=== PATIENT | female | born 1985 | race Hispanic/Latino ===

== ENCOUNTER 2017-07-01 01:35 | Emergency (ER) | payer SELFPAY ==
[2017-07-01 03:29] LABS: BASOPHILS % (AUTO) 0.4 % (0.0-5.0); EOSINOPHILS % (AUTO) 1.1 % (0.0-8.0); HEMATOCRIT 39.9 % (36-48); LYMPHOCYTES % (AUTO) 17.6 % (21.0-51.0); MEAN CORPUSCULAR HEMOGLOBIN 29.2 pg (27.0-33.0); MEAN CORPUSCULAR HGB CONC 33.5 g/dL (32.0-36.0); MEAN CORPUSCULAR VOLUME 87.1 fL (79-99); MONOCYTES % (AUTO) 4.8 % (3.0-13.0); NEUTROPHILS % (AUTO) 76.1 % (40.0-77.0); PLATELET COUNT (AUTO) 397 K/uL (130-400); RED BLOOD CELL COUNT(AUTO) 4.58 MIL/uL (4.00-5.50); WHITE BLOOD COUNT (AUTO) 14.4 K/uL (4.8-10.8)
[2017-07-01 03:34] LABS: APPEARANCE,URINE Turbid (CLEAR); BILIRUBIN,URINE Small (NEGATIVE); COLOR,URINE Dark Yellow (YELLOW); GLUCOSE, URINE (UA) Negative (NEGATIVE); KETONES,URINE Negative (NEGATIVE); LEUKOCYTE ESTERASE ,URINE Moderate (NEGATIVE); NITRATE,URINE Positive (NEGATIVE); OCCULT BLOOD,URINE Large (NEGATIVE); PROTEIN,URINE >=1000 (NEGATIVE)
[2017-07-01 03:38] LABS: CREATININE 0.9 mg/dL (0.5-1.5); POTASSIUM 4.2 mmol/L (3.5-5.1)
[2017-07-01 03:42] LABS: ALBUMIN 3.3 g/dL (3.5-5.0); BILIRUBIN,TOTAL 0.3 mg/dL (0.2-1.0); TOTAL PROTEIN, SERUM 7.8 g/dL (6.0-8.3)
[2017-07-01 03:42] LABS: AMPHET/METH SCREEN,URINE NEGATIVE (NEGATIVE); BARBITURATE SCREEN, URINE NEGATIVE (NEGATIVE); BENZODIAZEPINES SCREEN,URINE NEGATIVE (NEGATIVE); CANNABINOID SCREEN,URINE NEGATIVE (NEGATIVE); COCAINE SCREEN,URINE NEGATIVE (NEGATIVE); OPIATE SCREEN,URINE NEGATIVE (NEGATIVE); PHENCYCLIDINE SCREEN,URINE NEGATIVE (NEGATIVE)
[2017-07-01 03:45] LABS: BACTERIA,URINE Moderate /HPF (None Seen); MUCUS,URINE Moderate LPF (None Seen); SQUAMOUS EPITHELIAL CELL,UR Moderate /LPF (0-2)
[2017-07-01] MEDS ORDERED: KETOROLAC TROMETHAMINE 30MG/ML ONE (03:49)
== END 2017-07-01 04:41 | disposition home or self-care (01) ==
LOC: EDH 01:35
DX: N39.0 Urinary tract infection, site not specified (principal); R30.0 Dysuria
CPT/HCPCS: 36415; 80053; 80305; 81001; 83690; 84703; 85025; 96361; 96374; 99285; J1885

== ENCOUNTER 2017-08-16 08:41 | Emergency (ER) | payer SELFPAY | END 2017-08-16 09:58 | disposition home or self-care (01) | LOC: EDH 08:41 | DX: L02.415 Cutaneous abscess of right lower limb (principal) ==

== ENCOUNTER 2017-09-25 16:35 | Emergency (ER) | payer OTHER ==
[2017-09-25 17:17] LABS: BASOPHILS % (AUTO) 0.5 % (0.0-5.0); EOSINOPHILS % (AUTO) 1.1 % (0.0-8.0); HEMATOCRIT 38.9 % (36-48); LYMPHOCYTES % (AUTO) 26.1 % (21.0-51.0); MEAN CORPUSCULAR HEMOGLOBIN 29.3 pg (27.0-33.0); MEAN CORPUSCULAR HGB CONC 33.6 g/dL (32.0-36.0); MEAN CORPUSCULAR VOLUME 87.1 fL (79-99); MONOCYTES % (AUTO) 5.3 % (3.0-13.0); PLATELET COUNT (AUTO) 382 K/uL (130-400); RED BLOOD CELL COUNT(AUTO) 4.47 MIL/uL (4.00-5.50); RED CELL DISTRIBUTION WIDTH 13.5 % (11.0-15.5); WHITE BLOOD COUNT (AUTO) 12.7 K/uL (4.8-10.8)
[2017-09-25 17:24] LABS: APPEARANCE,URINE CLOUDY (CLEAR); BILIRUBIN,URINE NEGATIVE (NEGATIVE); COLOR,URINE YELLOW (YELLOW); GLUCOSE, URINE (UA) NEGATIVE (NEGATIVE); KETONES,URINE NEGATIVE (NEGATIVE); LEUKOCYTE ESTERASE ,URINE LARGE (NEGATIVE); NITRATE,URINE NEGATIVE (NEGATIVE); OCCULT BLOOD,URINE LARGE (NEGATIVE); PH,URINE 5.5 (5.0-8.0); PROTEIN,URINE TRACE (NEGATIVE); UROBILINOGEN,URINE 0.2 mg/dL (0.2-1.0)
[2017-09-25 17:29] LABS: CREATININE 0.9 mg/dL (0.5-1.5); POTASSIUM 3.8 mmol/L (3.5-5.1)
[2017-09-25 17:34] LABS: ALBUMIN 3.4 g/dL (3.5-5.0); BILIRUBIN,TOTAL 0.2 mg/dL (0.2-1.0); TOTAL PROTEIN, SERUM 7.6 g/dL (6.0-8.3)
[2017-09-25 17:39] LABS: HCG,QUAL RESULT NEGATIVE (NEGATIVE)
[2017-09-25 17:47] LABS: RBC,URINE 26-50 /HPF (0-1)
[2017-09-25 17:48] LABS: BACTERIA,URINE Few /HPF (None Seen); SQUAMOUS EPITHELIAL CELL,UR Few /HPF (0-2)
[2017-09-25 18:04] LABS: B-TYPE NATRIURETIC PEPTIDE 62 pg/mL (0-100)
== END 2017-09-25 19:05 | disposition home or self-care (01) ==
LOC: EDH 16:35
DX: R20.2 Paresthesia of skin (principal); R60.0 Localized edema
CPT/HCPCS: 36415; 80053; 81001; 81025; 83880; 85025

== ENCOUNTER 2018-05-06 17:05 | Emergency (ER) | payer OTHER ==
[2018-05-06 18:05] LABS: APPEARANCE,URINE SL CLOUDY (CLEAR); BILIRUBIN,URINE NEGATIVE (NEGATIVE); COLOR,URINE YELLOW (YELLOW); GLUCOSE, URINE (UA) NEGATIVE (NEGATIVE); KETONES,URINE NEGATIVE (NEGATIVE); LEUKOCYTE ESTERASE ,URINE MODERATE (NEGATIVE); NITRATE,URINE NEGATIVE (NEGATIVE); OCCULT BLOOD,URINE LARGE (NEGATIVE); PROTEIN,URINE 30 (NEGATIVE)
[2018-05-06 18:07] LABS: HCG,QUAL RESULT NEGATIVE (NEGATIVE)
[2018-05-06 18:12] LABS: BACTERIA,URINE Few /HPF (None Seen); MUCUS,URINE Rare LPF (None Seen); SQUAMOUS EPITHELIAL CELL,UR Few /HPF (0-2)
== END 2018-05-06 18:41 | disposition home or self-care (01) ==
LOC: EDH 17:05
DX: N39.0 Urinary tract infection, site not specified (principal); Z87.442 Personal history of urinary calculi
CPT/HCPCS: 81001; 81025

== ENCOUNTER 2018-11-03 20:35 | Emergency (ER) | payer SELFPAY ==
[2018-11-03 22:22] LABS: APPEARANCE,URINE Clear (CLEAR); BILIRUBIN,URINE Negative (NEGATIVE); COLOR,URINE Yellow (YELLOW); GLUCOSE, URINE (UA) Negative (NEGATIVE); KETONES,URINE Negative (NEGATIVE); LEUKOCYTE ESTERASE ,URINE Large (NEGATIVE); NITRATE,URINE Negative (NEGATIVE); OCCULT BLOOD,URINE Negative (NEGATIVE); PH,URINE 6.5 (5.0-8.0); PROTEIN,URINE Negative (NEGATIVE)
[2018-11-03 22:35] LABS: BACTERIA,URINE Few /HPF (None Seen); RBC,URINE 0-1 /HPF (0-1)
[2018-11-03] MEDS ORDERED: LIDOCAINE HCL-MPF 1% 2ML VIAL ONE (22:50)
[2018-11-03] MEDS ORDERED: CEFTRIAXONE SODIUM 1 GM ONE (22:50)
== END 2018-11-03 23:12 | disposition home or self-care (01) ==
LOC: EDH 20:35
DX: N39.0 Urinary tract infection, site not specified (principal)
CPT/HCPCS: 81001; 81025; 87088; 96372; 99284; J0696; J3490; 87077; 87186

== ENCOUNTER 2019-07-22 17:38 | Emergency (ER) | payer SELFPAY ==
[2019-07-22] MEDS ORDERED: SODIUM CHLORIDE 0.9% 1000ML 1,000 ML IV ONE (18:17)
[2019-07-22] MEDS ORDERED: PROCHLORPERAZINE EDISYLATE 10 MG/2 ML VIAL ONE (18:17)
[2019-07-22 18:32] LABS: HCG,QUAL RESULT NEGATIVE (NEGATIVE)
[2019-07-22 18:33] LABS: AMPHET/METH SCREEN,URINE NEGATIVE (NEGATIVE); BARBITURATE SCREEN, URINE NEGATIVE (NEGATIVE); BENZODIAZEPINES SCREEN,URINE NEGATIVE (NEGATIVE); CANNABINOID SCREEN,URINE NEGATIVE (NEGATIVE); COCAINE SCREEN,URINE NEGATIVE (NEGATIVE); OPIATE SCREEN,URINE NEGATIVE (NEGATIVE); PHENCYCLIDINE SCREEN,URINE NEGATIVE (NEGATIVE)
[2019-07-22 18:41] LABS: BASOPHILS % (AUTO) 0.4 % (0.0-5.0); EOSINOPHILS % (AUTO) 1.5 % (0.0-8.0); LYMPHOCYTES % (AUTO) 38.3 % (21.0-51.0); MEAN CORPUSCULAR HEMOGLOBIN 28.6 pg (27.0-33.0); MEAN CORPUSCULAR HGB CONC 32.5 g/dL (32.0-36.0); MEAN CORPUSCULAR VOLUME 87.9 fL (79-99); NEUTROPHILS % (AUTO) 53.6 % (40.0-77.0); PLATELET COUNT (AUTO) 366 K/uL (130-400); RED BLOOD CELL COUNT(AUTO) 4.55 MIL/uL (4.00-5.50); RED CELL DISTRIBUTION WIDTH 13.1 % (11.0-15.5); WHITE BLOOD COUNT (AUTO) 9.4 K/uL (4.8-10.8)
[2019-07-22 18:44] LABS: CREATININE 0.9 mg/dL (0.5-1.5); POTASSIUM 3.9 mmol/L (3.5-5.1)
== END 2019-07-22 20:47 | disposition home or self-care (01) ==
LOC: EDH 17:38
DX: R42 Dizziness and giddiness (principal); R20.8 Other disturbances of skin sensation
CPT/HCPCS: 36415; 80048; 80305; 81025; 85025; 93005; 96361; 96374; 99284; J0780; J7030

== ENCOUNTER 2019-11-16 11:28 | Emergency (ER) | payer OTHER, SELFPAY ==
[2019-11-16] MEDS ORDERED: ONDANSETRON HCL 4 MG/2 ML VIAL ONE (12:15)
[2019-11-16] MEDS ORDERED: SODIUM CHLORIDE 0.9% 1000ML 1,000 ML IV ONE (12:15)
[2019-11-16 12:33] LABS: BASOPHILS % (AUTO) 0.1 % (0.0-5.0); HEMATOCRIT 43.6 % (36-48); LYMPHOCYTES % (AUTO) 15.8 % (21.0-51.0); MEAN CORPUSCULAR HEMOGLOBIN 28.9 pg (27.0-33.0); MEAN CORPUSCULAR HGB CONC 32.8 g/dL (32.0-36.0); MEAN CORPUSCULAR VOLUME 88.1 fL (79-99); MONOCYTES % (AUTO) 2.9 % (3.0-13.0); PLATELET COUNT (AUTO) 267 K/uL (130-400); RED BLOOD CELL COUNT(AUTO) 4.95 MIL/uL (4.00-5.50); RED CELL DISTRIBUTION WIDTH 13.5 % (11.0-15.5); WHITE BLOOD COUNT (AUTO) 8.2 K/uL (4.8-10.8)
[2019-11-16 12:39] LABS: HCG,QUAL RESULT NEGATIVE (NEGATIVE)
[2019-11-16 12:40] LABS: CREATININE 0.8 mg/dL (0.5-1.5); POTASSIUM 4.2 mmol/L (3.5-5.1)
[2019-11-16 12:41] LABS: APPEARANCE,URINE Cloudy (CLEAR); BILIRUBIN,URINE Small (NEGATIVE); COLOR,URINE Dark Yellow (YELLOW); GLUCOSE, URINE (UA) Negative (NEGATIVE); KETONES,URINE Trace mg/dL (NEGATIVE); LEUKOCYTE ESTERASE ,URINE Moderate (NEGATIVE); NITRATE,URINE Positive (NEGATIVE); OCCULT BLOOD,URINE Large (NEGATIVE); PROTEIN,URINE POS 1+ mg/dL (NEGATIVE)
[2019-11-16 12:45] LABS: ALBUMIN 3.4 g/dL (3.5-5.0); BILIRUBIN,TOTAL 0.3 mg/dL (0.2-1.0); TOTAL PROTEIN, SERUM 8.4 g/dL (6.0-8.3)
[2019-11-16 12:50] LABS: BACTERIA,URINE Moderate /HPF (None Seen); RBC,URINE TNTC /HPF (0-1); SQUAMOUS EPITHELIAL CELL,UR Few /HPF (0-2)
[2019-11-16 12:57] LABS: RAPID GROUP A STREP NEGATIVE (NEGATIVE)
[2019-11-16] MEDS ORDERED: CEFTRIAXONE SODIUM 1 GM ONE (13:05)
== END 2019-11-16 14:41 | disposition home or self-care (01) ==
LOC: EDH 11:28
DX: J18.9 Pneumonia, unspecified organism (principal); B34.9 Viral infection, unspecified; Z20.828 Contact with and (suspected) exposure to other viral communicable diseases; Z87.442 Personal history of urinary calculi
CPT/HCPCS: 36415; 71045; 80053; 81001; 81025; 85025; 87077; 87088; 87186; 87804 ×2; 87880; 96374; 99284; J0696; J7030; J2405

== ENCOUNTER 2022-03-30 10:03 | Emergency (ER) | payer BC, MEDICAID ==
[~2022-03-30] VITALS: Ht 162.6 cm; Wt 108.9 kg
[2022-03-30 10:31] LABS: BASOPHILS % (AUTO) 0.3 % (0.0-5.0); EOSINOPHILS % (AUTO) 1.3 % (0.0-8.0); HEMATOCRIT 42.6 % (36-48); LYMPHOCYTES % (AUTO) 26.6 % (21.0-51.0); MEAN CORPUSCULAR HEMOGLOBIN 28.9 pg (27.0-33.0); MEAN CORPUSCULAR HGB CONC 32.4 g/dL (32.0-36.0); MEAN CORPUSCULAR VOLUME 89.3 fL (79-99); MONOCYTES % (AUTO) 4.3 % (3.0-13.0); NEUTROPHILS % (AUTO) 67.2 % (40.0-77.0); PLATELET COUNT (AUTO) 385 K/uL (130-400); RED BLOOD CELL COUNT(AUTO) 4.77 MIL/uL (4.00-5.50); RED CELL DISTRIBUTION WIDTH 13.3 % (11.0-15.5); WHITE BLOOD COUNT (AUTO) 13.4 K/uL (4.8-10.8)
[2022-03-30 10:49] LABS: CREATININE 0.8 mg/dL (0.5-1.5); POTASSIUM 3.7 mmol/L (3.5-5.1)
[2022-03-30 10:53] LABS: ALBUMIN 3.4 g/dL (3.5-5.0); TOTAL PROTEIN, SERUM 7.8 g/dL (6.0-8.3)
[2022-03-30 10:53] LABS: HCG,QUALITATIVE URINE NEGATIVE (NEGATIVE)
[2022-03-30 10:57] LABS: APPEARANCE,URINE CLOUDY (CLEAR); BILIRUBIN,URINE NEGATIVE (NEGATIVE); COLOR,URINE YELLOW (YELLOW); GLUCOSE, URINE (UA) NEGATIVE (NEGATIVE); KETONES,URINE NEGATIVE (NEGATIVE); LEUKOCYTE ESTERASE ,URINE LARGE Leu/uL (NEGATIVE); NITRATE,URINE NEGATIVE (NEGATIVE); OCCULT BLOOD,URINE MODERATE (NEGATIVE); PH,URINE 6.5 (5.0-8.0); PROTEIN,URINE TRACE mg/dL (NEGATIVE); UROBILINOGEN,URINE 0.2 mg/dL (0.2-1.0)
[2022-03-30 11:13] LABS: BACTERIA,URINE Moderate /HPF (None Seen); WBC,URINE TNTC /HPF (0-1)
[2022-03-30 11:18] VITALS: BP 127/71
[2022-03-30] MEDS ORDERED: SOLU-MEDROL 40MG VIAL IVP ONE (12:00)
[2022-03-30] MEDS ORDERED: CEFTRIAXONE 2GM VIAL IVP ONE (12:00)
[2022-03-30] MEDS ORDERED: CEPH500B PO (13:17)
[2022-03-30] MEDS ORDERED: METH4TAB3 PO (13:17)
== END 2022-03-30 14:49 | disposition home or self-care (01) ==
LOC: EDH 10:03
DX: S39.012A Strain of muscle, fascia and tendon of lower back, initial encounter (principal); N39.0 Urinary tract infection, site not specified; X58.XXXA Exposure to other specified factors, initial encounter; Y93.89 Activity, other specified; Y92.89 Other specified places as the place of occurrence of the external cause; Y99.8 Other external cause status
CPT/HCPCS: 99284; 96374; 96375; 84484; 80053; 83690; 85025; 87088; 81001; 81025; 36415; J0696; J2920

== ENCOUNTER 2024-07-31 21:27 | Emergency (ER) | payer BC, MEDICAID ==
[~2024-07-31] VITALS: Ht 162.6 cm; Wt 113.4 kg
[~2024-07-31 21:27] MED LIST: CEPH500B PO; METH4TAB3 PO
--- NOTE | 2024-07-31 21:31 | NUR ---
UA CUP PROVIDED
[2024-07-31 22:15] LABS: BASOPHILS # (AUTO) 0.03 K/uL (0.00-0.20); BASOPHILS % (AUTO) 0.3 % (0.0-5.0); EOSINOPHILS # (AUTO) 0.06 K/uL (0.00-0.70); EOSINOPHILS % (AUTO) 0.5 % (0.0-8.0); HEMATOCRIT 39.3 % (36-48); IMMATURE GRANULOCYTE ABSOLUTE 0.03 K/uL (0-1); LYMPHOCYTES # (AUTO) 2.6 K/uL (1.0-4.8); LYMPHOCYTES % (AUTO) 23.4 % (21.0-51.0); MEAN CORPUSCULAR HEMOGLOBIN 29.9 pg (27.0-33.0); MEAN CORPUSCULAR HGB CONC 32.8 g/dL (32.0-36.0); MONOCYTES # (AUTO) 0.7 K/uL (0.1-1.0); MONOCYTES % (AUTO) 6.4 % (3.0-13.0); NEUTROPHILS # (AUTO) 7.6 K/uL (1.8-7.7); NEUTROPHILS % (AUTO) 69.1 % (40.0-77.0); PLATELET COUNT (AUTO) 322 K/uL (130-400); RED BLOOD CELL COUNT(AUTO) 4.32 MIL/uL (4.00-5.50); RED CELL DISTRIBUTION WIDTH 13.2 % (11.0-15.5)
[2024-07-31 22:30] LABS: CREATININE 0.9 mg/dL (0.5-1.0); POTASSIUM 3.8 mmol/L (3.5-5.1)
[2024-07-31 22:34] LABS: APPEARANCE,URINE TURBID (CLEAR); BILIRUBIN,URINE NEGATIVE (NEGATIVE); COLOR,URINE LIGHT-ORANGE (YELLOW); GLUCOSE, URINE (UA) NEGATIVE (NEGATIVE); KETONES,URINE NEGATIVE (NEGATIVE); LEUKOCYTE ESTERASE ,URINE 500 Leu/uL (NEGATIVE); NITRATE,URINE NEGATIVE (NEGATIVE); OCCULT BLOOD,URINE MODERATE (NEGATIVE); PH,URINE 7.5 (5.0-8.0); PROTEIN,URINE 70 mg/dL (NEGATIVE)
[2024-07-31] MEDS: 0.9%NACL 1000ML 1,000 ML IV ONE (22:34)
[2024-07-31] MEDS: ketOROlac 15MG/ML VIAL (15MG/ML) IV ONE (22:35)
[2024-07-31 22:37] LABS: HCG,QUALITATIVE URINE NEGATIVE (NEGATIVE)
[2024-07-31 22:41] LABS: ADD UA MICROSCOPIC YES
[2024-07-31 22:44] LABS: BACTERIA,URINE MOD /HPF (None Seen); SQUAMOUS EPITHELIAL CELL,UR FEW /HPF (0-2); WBC CLUMP MANY /HPF (0-1); WBC,URINE TNTC /HPF (0-1); YEAST,URINE BUDDING MANY /HPF (None Seen)
--- NOTE | 2024-07-31 23:12 | HMCIMG ---
CT ABDOMEN/PELVIS W/O CONTRAST HISTORY: Flank pain COMPARISON: None TECHNIQUE: Multiple sequential axial images of the abdomen and pelvis were obtained from the dome of the diaphragm through symphysis pubis. Patient was not given contrast through intravenous route. Oral contrast was not given. FINDINGS: No pleural effusion is seen bilaterally. There is no evidence of parenchymal disease or pulmonary nodule of the visualized lower lungs. Degenerative changes of the thoracolumbar spine are present. The heart is not enlarged. Liver is enlarged measuring 21 cm. Gallstones are seen in the gallbladder. The liver, spleen, adrenal glands and pancreas are unremarkable. No hydronephrosis is seen on the right. There is left hydroureter with 10 mm renal stone in the left distal ureter. There is left renal cyst measuring 4 cm a small 2 mm renal stone. Fecal material is seen in the colon. There are normal size retroperitoneal and mesenteric lymph nodes. No ascites is seen. Atherosclerotic changes are present. Pelvic sidewalls are symmetric bilaterally. Bladder is poorly distended. IMPRESSION: 1. There is left hydroureter with 10 mm renal stone in the left distal ureter. There is left renal cyst measuring 4 cm a small 2 mm renal stone. Gallstones in the gallbladder. CT was performed with one or more following dose reduction techniques: automated exposure control, adjustment of the mA and kv according to patient's size, or use of a iterative reconstruction technique.
[2024-07-31] MEDS: cefTRIAXone 1G VIAL IVPB ONE (23:14)
[2024-07-31] MEDS ORDERED: SULF1TAB42 PO (23:49)
[2024-07-31] MEDS ORDERED: TAMS-1 PO (23:49)
[2024-07-31] MEDS ORDERED: KETO10TA2 PO (23:49)
[2024-07-31] MEDS: tamSULOsin HCL 0.4 MG CAP.ER.24H PO ONE (23:50)
--- NOTE | 2024-07-31 23:52 | ERN ---
General Chief Complaint: Back Pain-No Injury Stated Complaint: LOW BACK PAIN Time Seen by MD: 21:28 Time Seen by Midlevel: 21:28 Source: patient History of Present Illness Initial Comments Patient is a 39-year-old female with a past medical history of kidney stones presenting to the emergency department for evaluation of left flank pain. She also reports dysuria. She states the pain is similar to the previous time she has been diagnosed with a kidney infection. She reports taking 800 mg of ibuprofen prior to arrival. Denies any other symptoms at this time. Allergies: Coded Allergies: No Known Allergies (Unverified Allergy, Unknown, 03/30/22) Home Meds Active Scripts Ketorolac Tromethamine (Ketorolac Tromethamine) 10 Mg Tablet, 1 TAB PO TID for pain for 5 Days, #15 TAB 0 Refills Prov:FUAD GARCIA 07/31/24 Tamsulosin HCl (Flomax) 0.4 Mg Cap.er.24h, 1 CAP PO DAILY for 10 Days, #10 CAP 0 Refills Prov:FUAD GARCIA 07/31/24 Sulfamethoxazole/Trimethoprim (Bactrim Ds Tablet) 800 Mg-160 Mg Tablet, 1 TAB PO BID for 7 Days, #14 TAB 0 Refills Prov:FUAD GARCIA 07/31/24 Methylprednisolone (Medrol) 4 Mg Tab.ds.pk, 4 MG PO AD, #1 PACK Prov:TERRANCE MOREIRA MD 03/30/22 Cephalexin Monohydrate (Keflex) 500 Mg Cap, 500 MG PO TID, #30 CAP Prov:TERRANCE MOREIRA MD 03/30/22 Past Medical History Past Medical History: Kidney Stone Past Surgical History: None Social History Social History: Negative, Lives with family Female( History) LMP: Jul 17, 2024 ROS Dictation CONSTITUTIONAL: Negative except for HPI HEAD/FACE: Negative except for HPI EENT: Negative except for HPI RESPIRATORY: Negative except for HPI GASTROINTESTINAL/ABDOMINAL: Negative except for HPI GENITOURINARY: Negative except for HPI MUSCULOSKELETAL: Negative except for HPI INTEGUMENTARY: Negative except for HPI NEUROLOGICAL/PSYCH: Negative except for HPI HEMATOLOGIC/LYMPHATIC: Negative except for HPI All Systems Negative, Except as noted above. 13 point review of systems assessed and all negative except for above. Physical Exam Physical Exam Dictation Vital Signs reviewed General Appearance: Alert, oriented x 3, no acute distress, well developed, nourished. Head and Face: non-traumatic. Eyes: PERRL, pink conjunctivas, eyelid no trauma, anterior chamber with arcus senilis. Ears: Pinnas intact and no signs of trauma or erythema ear canals clear and no discharge TM no erythema Nose: No discharge, no bleeding. Oropharynx: Mouth normal, tongue pink, pharynx clear,no erythema, tonsils no exudates, no abscesses noted, mucous membrane moist Neck: Supple, non-tender, no thyromegaly, no masses, no JVD, no bruits Breast:Deferred Chest:No tenderness, no crepitus, no paradoxical movement, no retractions Lungs:Clear, well-ventilated, symmetric, no rales, no wheezing, no rhonchi, no stridor, good breath sounds bilaterally Heart: Regular rate, regular rhythm, no murmur, no gallops Vascular: no peripheral edema, Abdomen: Soft, positive bowel sounds, nondistended, no guarding, nontender, no rebound, no masses no hepatomegaly, no splenomegaly, no Contreras's sign, no hernias. Rectal: Deferred Genital: Deferred Neurological: Normal speech, motor function intact, sensory function intact Musculoskeletal: Neck nontender, full range of motion, back nontender, full range of motion, Extremities: nontender, full range of motion Skin: Color pink, dry, no turgor, no rash, no lacerations, no abrasions, no contusions. Lymphatic: Deferred Results Laboratory and Microbiology Lab and Micro Result Laboratory Tests Test 07/31/24 22:09 07/31/24 22:19 White Blood Count 11.0 K/uL (4.8-10.8) H Red Blood Count 4.32 MIL/uL (4.00-5.50) Hemoglobin 12.9 g/dL (12.0-16.0) Hematocrit 39.3 % (36-48) Mean Corpuscular Volume 91.0 fL (79-99) Mean Corpuscular Hemoglobin 29.9 pg (27.0-33.0) Mean Corpuscular Hemoglobin Concent 32.8 g/dL (32.0-36.0) Red Cell Distribution Width 13.2 % (11.0-15.5) Platelet Count 322 K/uL (130-400) Mean Platelet Volume 9.6 fL (7.5-10.5) Immature Granulocyte % (Auto) 0.3 % (0-1) Neutrophils (%) (Auto) 69.1 % (40.0-77.0) Lymphocytes (%) (Auto) 23.4 % (21.0-51.0) Monocytes (%) (Auto) 6.4 % (3.0-13.0) Eosinophils (%) (Auto) 0.5 % (0.0-8.0) Basophils (%) (Auto) 0.3 % (0.0-5.0) Neutrophils # (Auto) 7.6 K/uL (1.8-7.7) Lymphocytes # (Auto) 2.6 K/uL (1.0-4.8) Monocytes # (Auto) 0.7 K/uL (0.1-1.0) Eosinophils # (Auto) 0.06 K/uL (0.00-0.70) Basophils # (Auto) 0.03 K/uL (0.00-0.20) Absolute Immature Granulocyte (auto 0.03 K/uL (0-1) Nucleated Red Blood Cells 0.0 % (0.0-0.19) Sodium Level 139 mmol/L (136-145) Potassium Level 3.8 mmol/L (3.5-5.1) Chloride Level 102 mmol/L (101-111) Carbon Dioxide Level 31 mmol/L (21-32) Blood Urea Nitrogen 10 mg/dL (7-18) Creatinine 0.9 mg/dL (0.5-1.0) Glomerular Filtration Rate Calc 82 mL/min (>90) Random Glucose 155 mg/dL (70-105) H Total Calcium 8.8 mg/dL (8.5-10.1) Serum Test, Qualitative NEGATIVE (NEGATIVE) Urine Color LIGHT-ORANGE (YELLOW) Urine Appearance TURBID (CLEAR) Urine pH 7.5 (5.0-8.0) Urine Specific [place] 1.013 (1.001-1.031) Urine Protein 70 mg/dL (NEGATIVE) H Urine Glucose (UA) NEGATIVE mg/dL (NEGATIVE) Urine Ketones NEGATIVE mg/dL (NEGATIVE) Urine Occult Blood MODERATE (NEGATIVE) H Urine Nitrate NEGATIVE (NEGATIVE) Urine Bilirubin NEGATIVE mg/dL (NEGATIVE) Urine Urobilinogen 2.0 mg/dL (0.2-1.0) H Urine Leukocyte Esterase 500 Gaston/uL (NEGATIVE) H Urine RBC 11-25 /HPF (0-1) H Urine WBC TNTC /HPF (0-1) H Urine WBC Clumps (Auto) MANY /HPF (0-1) Urine Squamous Epithelial Cells FEW /HPF (0-2) Urine Bacteria MOD /HPF (None Seen) Urine Yeast MANY /HPF (None Seen) Urine HCG, Qualitative NEGATIVE (NEGATIVE) Labs Reviewed?: Yes MDM MDM: Patient is a 39-year-old female with a past medical history of kidney stones presenting to the emergency department for evaluation of left flank pain. She also reports dysuria. She states the pain is similar to the previous time she has been diagnosed with a kidney infection. She reports taking 800 mg of i buprofen prior to arrival. Denies any other symptoms at this time. On physical examination the patient is in no acute distress. Initial vital signs reveal a low-grade temperature of 99.1 with a heart rate of 97 beats per minute and blood pressure 103/62. Patient was not meet sepsis criteria. We obtained basic blood work to rule out an acute kidney injury. CBC shows a slight leukocytosis with a white blood cell count of 11.0. The remainder of her CBC is unremarkable. There was no anemia or thrombocytopenia. Chemistries are unremarkable. There is a normal creatinine at 0.9 and a BUN of 10. Urinalysis reveals is consistent with infection. There is 500 leuk esterase with urine white blood cells and moderate amount of bacteria. CT scan of the abdomen and pelvis without contrast reveals a left hydroureter with a 10 mm renal stone in the left distal ureter. There was also a left renal cyst measuring 4 cm. There was a small2 mm renal stone and there is evidence of cholelithiasis but no evidence of acute cholecystitis. The patient was given 0.4 mg of Flomax and1 g of ceftriaxone IV to cover for her urinary tract infection. At this time the patient was not septic. My plan was to admit the patient for continued IV antibiotics and Urology consultation given that the stone measures 10 mm. However, the patient is refusing to stay and would like to sign out against medical advice. Risks discussed with the patient. The patient was given strict return precautions. I discharged her home with a prescription for Bactrim, Flomax, and ketorolac but she was advised to follow up with your PCP tomorrow if possible. . Differential diagnosis: Rationale: Tests considered and ordered secondary to shared decision making include: Previous outside records reviewed: Old ER visits. Risk of complication and/or morbidity or mortality of patient management: None Medications-Per medication reconciliation Need for hospitalization: Patient does meet criteria for hospitalization. Need for emergency major/minor surgery: No There are no social concerns with this patient. Prescription drug management Prescriptions will include symptomatic care Patient's prior external medical records from other ER visits were reviewed by me as indicated. Prior testing and results from previous visits were reviewed. Prior tests were taken into account with medical decision making and resource utilization, independent historian/historians were used to obtain complete medical history. I independently interpreted the test that were performed, results were reviewed by me and considered findings on radiology if ordered. Medical management and examination interpretation discussions were had by me with other qualified healthcare professionals as indicated for the patient's care. ED Course Orders Procedure Category Date Status Time Urinalysis Profile LAB 07/31/24 Complete 21:52 ,Urine Test LAB 07/31/24 Complete 21:52 Cbc With Differential LAB 07/31/24 Complete 22:00 Basic Metabolic Panel LAB 07/31/24 Complete 22:00 Testing, LAB 07/31/24 Complete Serum Hcg 22:00 Ct Abdomen/Pelvis W/O CT 07/31/24 Resulted Contrast 22:00 0.9%Nacl 1000ml (Ns PHA 07/31/24 Complete 1000ml) 22:00 Ketorolac PHA 07/31/24 Complete Tromethamine 15mg/Ml 22:00 Culture Urine CEFERINO 07/31/24 In Process 22:42 Ceftriaxone 1g Vial PHA 07/31/24 Complete (Rocephine 1g Inj) 23:00 Tamsulosin Hcl PHA 08/01/24 In Process (Flomax) 00:00 Current Medications Medications (Trade) Dose Ordered Sig/Jolynn Route PRN Reason Start Time Stop Time Status Last Admin Dose Admin Ceftriaxone Sodium (ROCEphine 1G INJ) 1 gm ONCE ONCE IVPB 07/31/24 23:00 07/31/24 23:01 DC 07/31/24 23:14 Ketorolac Tromethamine (toRADol) 15 mg ONCE ONCE IV 07/31/24 22:00 07/31/24 22:09 DC 07/31/24 22:35 Sodium Chloride 1,000 ml @ 0 mls/hr ONCE ONCE IV 07/31/24 22:00 07/31/24 22:09 DC 07/31/24 22:34 Tamsulosin HCl (FloMAX) 0.4 mg ONCE ONCE PO 08/01/24 00:00 08/01/24 00:01 07/31/24 23:50 Vital Signs Date Time Temp Pulse Resp B/P (MAP) Pulse Ox O2 Delivery O2 Flow Rate FiO2 07/31/24 23:17 98.2 79 18 102/56 98 Room Air* 0 21 07/31/24 21:28 99.1 97 16 103/62 98 Room Air [facility] [address] [place] [address] [id number] IMAGING REPORT Signed PATIENT: ELISHA MEYER MR#: [id number] : 1985 SEX: F AGE: 39 LOCATION: [facility] ORDER 00 STATUS: REG ER REPORT#: [id number] SERVICE 99 REASON: flank pain r/o kidney stone ORDERING PHYSICIAN: FUAD GARCIA PROCEDURE: ABD PEL WO - CT ABDOMEN/PELVIS W/O CONTRAST CT ABDOMEN/PELVIS W/O CONTRAST HISTORY: Flank pain COMPARISON: None TECHNIQUE: Multiple sequential axial images of the abdomen and pelvis were obtained from the dome of the diaphragm through symphysis pubis. Patient was not given contrast through intravenous route. Oral contrast was not given. FINDINGS: No pleural effusion is seen bilaterally. There is no evidence of parenchymal disease or pulmonary nodule of the visualized lower lungs. Degenerative changes of the thoracolumbar spine are present. The heart is not enlarged. Liver is enlarged measuring 21 cm. Gallstones are seen in the gallbladder. The liver, spleen, adrenal glands and pancreas are unremarkable. No hydronephrosis is seen on the right. There is left hydroureter with 10 mm renal stone in the left distal ureter. There is left renal cyst measuring 4 cm a small 2 mm renal stone. Fecal material is seen in the colon. There are normal size retroperitoneal and mesenteric lymph nodes. No ascites is seen. Atherosclerotic changes are present. Pelvic sidewalls are symmetric bilaterally. Bladder is poorly distended. IMPRESSION: 1. There is left hydroureter with 10 mm renal stone in the left distal ureter. There is left renal cyst measuring 4 cm a small 2 mm renal stone. Gallstones in the gallbladder. CT was performed with one or more following dose reduction techniques: automated exposure control, adjustment of the mA and kv according to patient's size, or use of a iterative reconstruction technique. DICTATED BY: ROWENA BENITEZ MD DATE: 07/31/242256 ELECTRONICALLY SIGNED BY: ROWENA BENITEZ MD DATE: 07/31/242311 DX & DISP Disposition: AMA Departure Impression: Primary Impression: UTI (urinary tract infection) Additional Impression: Left ureteral stone Condition: Stable Scripts Ketorolac Tromethamine (Ketorolac Tromethamine) 10 Mg Tablet 1 TAB PO TID for pain for 5 Days, #15 TAB 0 Refills Prov: FUAD GARCIA 07/31/24 Tamsulosin HCl (Flomax) 0.4 Mg Cap.er.24h 1 CAP PO DAILY for 10 Days, #10 CAP 0 Refills Prov: FUAD GARCIA 07/31/24 Sulfamethoxazole/Trimethoprim (Bactrim Ds Tablet) 800 Mg-160 Mg Tablet 1 TAB PO BID for 7 Days, #14 TAB 0 Refills Prov: FUAD GARCIA 07/31/24 Additional Instructions: Your blood work today is stable. Your kidney function is normal. Your urinalysis shows evidence of infection. You were given1 g of ceftriaxone IV which is an antibiotic. Your CT scan shows a 10 mm renal stone in the left ureter. My plan was to admit you for further observation and IV antibiotics however you decided to leave against medical advice. If you develop worsening pain, fever, chills, or any other worsening symptoms please report to the ER for further evaluation. Referrals: SELF,REFERRAL (PCP) I have reviewed the case, and I agree with, Diagnosis and Plan I performed the substantive portion of the visit. I have reviewed and personally made and approve the management plan that is documented in the note by myself or the YASMEEN. I acknowledge for responsibility for the patient's management plan. FUAD GARCIA Jul 31, 2024 23:52
--- NOTE | 2024-07-31 23:55 | NUR ---
PATIENT IS ALERT AND ORIENTED X4, PATIENT REPORTED SHE DID NOT WANT TO BE ADMITTED TO THE HOSPITAL ADVICED BY RADHA VARGAS, PATIENT STATED SHE WOULD RATHER LEAVE AGAINST MEDICAL ADVICE. PATIENT WAS EDUCATED ON AND VEBALIZED UNDERSTANDING OF THE RISKS AND CONSEQUENCES, INCLUDING , INVOLVED IN LEAVING THE HOSPITAL AT THIS TIME, THE BENEFITS OF CONTINUED TREATMENT AND HOSPITILIZATION. AMA FORM SIGNED BY PATIENT. RADHA VARGAS, CHANTEL SUP, AND CHARGE NURSE MADE AWARE. PATIENT ADVICED TO FOLLOW UP WITH PCP AND SEEK EMERGENCY HELP IF NEEDED.
[2024-07-31 23:56] VITALS: BP 106/60; PULSE 72; RESP 18; TEMP 98; O2SAT 99
== END 2024-07-31 23:55 | disposition left against medical advice (07) ==
LOC: EDH 21:27
DX: N39.0 Urinary tract infection, site not specified (principal); N20.2 Calculus of kidney with calculus of ureter; Z79.899 Other long term (current) drug therapy
CPT/HCPCS: 99284; 74176; 96365; 96361; 96375; 80048; 84703; 85025; 87086 ×2; 87186; 81001; 81025; 36415; J1885; J7030; J0696